=== PATIENT | male | born 1940 | race Caucasian/White ===

== ENCOUNTER → 2020-12-04 | Outpatient (CLI) | payer MEDICARE, OTHER | END | disposition home or self-care (01) | LOC: CVU 13:56 | PROVIDERS: ATTEND Internal Medicine Cardiovascular Disease | DX: I65.23 Occlusion and stenosis of bilateral carotid arteries (principal); R55 Syncope and collapse; Z95.1 Presence of aortocoronary bypass graft | CPT/HCPCS: 93880 ==

== ENCOUNTER 2021-06-11 09:57 | Outpatient (CLI) | payer MEDICARE, OTHER ==
[2021-06-11] MEDS ORDERED: OMNIPAQUE 350 MG/ML, 100ML BOTTLE ONE (11:00)
== END 2021-06-11 23:59 | disposition home or self-care (01) ==
LOC: CFH 09:57
PROVIDERS: ATTEND Nurse Practitioner Family
DX: M50.31 Other cervical disc degeneration, high cervical region (principal); M48.02 Spinal stenosis, cervical region; R20.2 Paresthesia of skin; R55 Syncope and collapse; M25.78 Osteophyte, vertebrae
CPT/HCPCS: 70496; 72141; Q9967

== ENCOUNTER 2021-06-18 11:44 | Outpatient (CLI) | payer MEDICARE, OTHER | END 2021-06-18 23:59 | disposition home or self-care (01) | LOC: CFH 11:44 | PROVIDERS: ATTEND Nurse Practitioner Family | DX: Z02.9 Encounter for administrative examinations, unspecified (principal) ==

== ENCOUNTER 2021-07-01 07:41 | Observation (INO) | payer MEDICARE, OTHER ==
[~2021-07-01] VITALS: Ht 174 cm; Wt 91.8 kg
[2021-07-01] MEDS ORDERED: CLOP75TA52 PO (08:03)
[2021-07-01] MEDS ORDERED: EZET10TA70 PO (08:03)
[2021-07-01] MEDS ORDERED: LEVO100T PO (08:03)
[2021-07-01] MEDS ORDERED: ATOR40TA78 PO (08:03)
[2021-07-01 08:08] VITALS: BP 136/71
[2021-07-01] MEDS ORDERED: MIDAZOLAM 1 MG/ML, 5ML ONE (08:45)
[2021-07-01] MEDS ORDERED: LIDOCAINE 1%, 20ML ONE (08:46)
[2021-07-01] MEDS ORDERED: CEFAZOLIN 1,000 MG ONE (08:46)
[2021-07-01] MEDS ORDERED: FENTANYL PF 100 MCG/2ML ONE (08:46)
[2021-07-01] MEDS ORDERED: CEFAZOLIN PMX 1GM/50ML 50 ML ONE (08:46)
[2021-07-01 08:53] LABS: BASOPHILS % (AUTO) 1 % (0-1); EOSINOPHILS % (AUTO) 2 % (1-7); LYMPHOCYTES % (AUTO) 21 % (22-44); MEAN CORPUSCULAR HEMOGLOBIN 30.1 pg (27.5-34.5); MEAN CORPUSCULAR HGB CONC 33.3 g/dL (33.2-36.2); MONOCYTES % (AUTO) 9 % (2-9); NEUTROPHILS % (AUTO) 67 % (42-75); PLATELET COUNT 157 x10^3/uL (130-400); RED BLOOD COUNT 4.48 x10^6/uL (4.38-5.82); RED CELL DISTRIBUTION WIDTH 14.5 % (9.4-14.8)
[2021-07-01] MEDS ORDERED: CEFAZOLIN PMX 1GM/50ML 50 ML IVPB ONE (09:00)
[2021-07-01] MEDS: SODIUM CHLORIDE 0.9% 1,000 ML IV SCH ×2 (09:00→13:09)
[2021-07-01 09:05] LABS: ANION GAP 5 mmol/L (5-15); CHLORIDE 111 mmol/L (98-107)
[2021-07-01] MEDS ORDERED: DIPHENHYDRAMINE 50 MG/ML, 1ML ONE (09:49)
[2021-07-01] MEDS ORDERED: HOLD MEDICATION MC PRN (10:30)
[2021-07-01] MEDS ORDERED: HYDROcodone/APAP 5/325 TABLET PO PRN (10:30)
[2021-07-01 11:15] VITALS: BP 149/80
[2021-07-01 14:22] VITALS: BP 127/76
[2021-07-01] MEDS: CEFAZOLIN PMX 1GM/50ML 50 ML IVPB SCH (18:10)
[2021-07-01] MEDS: ACETAMINOPHEN 325 MG TABLET PO PRN (19:17)
[2021-07-01 19:20] VITALS: BP 153/83
[2021-07-01] MEDS: SODIUM CHLORIDE FLUSH 10ML SYR IVF SCH (20:56)
[2021-07-01] MEDS ORDERED: ATORVASTATIN 40 MG TABLET PO SCH (21:00)
[2021-07-02] MEDS: SODIUM CHLORIDE 0.9% 1,000 ML IV SCH ×2 (02:35→07:52)
[2021-07-02] MEDS: CEFAZOLIN PMX 1GM/50ML 50 ML IVPB SCH (02:35)
[2021-07-02 02:37] VITALS: BP 158/84
[2021-07-02] MEDS: ACETAMINOPHEN 325 MG TABLET PO PRN (02:37)
[2021-07-02] MEDS ORDERED: LEVOTHYROXINE 100 MCG TABLET PO SCH (06:00)
[2021-07-02] MEDS: SODIUM CHLORIDE FLUSH 10ML SYR IVF SCH (07:52)
[2021-07-02 08:05] VITALS: BP 152/89
[2021-07-02] MEDS ORDERED: ACET325T26 PO (08:42)
[2021-07-02] MEDS ORDERED: EZETIMIBE 10 MG TABLET PO SCH (09:00)
[2021-07-02] MEDS ORDERED: CLOPIDOGREL 75 MG TABLET PO SCH (09:00)
== END 2021-07-02 10:21 | disposition home or self-care (01) ==
LOC: CACL 07:41 → 5SO 10:28
PROVIDERS: ADMIT Internal Medicine Cardiovascular Disease; ATTEND Internal Medicine Cardiovascular Disease
DX: I49.5 Sick sinus syndrome (principal); I44.1 Atrioventricular block, second degree; I25.10 Atherosclerotic heart disease of native coronary artery without angina pectoris; I65.23 Occlusion and stenosis of bilateral carotid arteries; I10 Essential (primary) hypertension; K21.9 Gastro-esophageal reflux disease without esophagitis; E78.5 Hyperlipidemia, unspecified; E78.00 Pure hypercholesterolemia, unspecified; R73.9 Hyperglycemia, unspecified; R55 Syncope and collapse; Z79.899 Other long term (current) drug therapy; Z95.1 Presence of aortocoronary bypass graft
CPT/HCPCS: 33208; 36415; 71045; 71046; 80048; 85025; 93005; 96365; 96366; 99156; 99157; C1779; C1785; C1892; G0378; J0690; J1200; J2250; J3010; J3490